=== PATIENT | male | born 1970 | race Caucasian/White ===

== ENCOUNTER 2017-08-06 12:48 | Day surgery (SDC) | payer BC ==
[~2017-08-06 12:48] MED LIST: ACETAMINOPHEN 1,000 MG/100 ML BTL IV ONE; CEFAZOLIN 2 Gram 2 GM/50 ML BAG IVPB ONE
[2017-08-06] MEDS ORDERED: MIDAZOLAM HCL 2MG/2ML VIAL IV ONE (12:49)
[2017-08-06] MEDS ORDERED: PROPOFOL 10 MG/ML VIAL IV ONE (12:49)
[2017-08-06] MEDS ORDERED: KETOROLAC 60 MG/2 ML VIAL IM ONE (12:49)
[2017-08-06] MEDS ORDERED: MORPHINE SULFATE 5 MG/ML PFS IVP ONE (12:49)
[2017-08-06] MEDS ORDERED: BUPIVACAINE 0.5% W/EPI MPF 30 ML VIAL IVP ONE (12:49)
[2017-08-06] MEDS ORDERED: SEVOFLURANE 250 ML INH ONE (12:49)
--- NOTE | 2017-08-07 20:56 | Operative Note ---
DATE: 08/06/17 PREOPERATIVE DIAGNOSIS: INTERNAL DERANGEMENT OF THE LEFT KNEE. POSTOPERATIVE DIAGNOSES: COMPLETE TEAR OF THE ANTERIOR CRUCIATE LIGAMENT WITH UNSTABLE KNEE. PROCEDURE: 1. LEFT KNEE ARTHROSCOPY WITH INTRAARTICULAR DEBRIDEMENT. 2. LEFT KNEE EXAMINATION UNDER ANESTHESIA. STAFF SURGEON: CIRILO PUENTE M.D. ANESTHESIA: GENERAL. PREPARATION: NONE. INDIVIDUAL CONSIDERATIONS: NONE. PROCEDURE: The patient was taken to the Operating Room and placed supine on the operating table. He had a successful induction of a general anesthetic. Examination under anesthesia at this point was essentially normal except for the huge effusion. The knee was then prepped and draped in the usual fashion. The patient had superolateral inflow cannula placed. The skin was infiltrated with 0.5% Marcaine with Epinephrine prior. A large bloody effusion was drained. The knee was inflated with normal saline. An inferior medial and an inferior lateral portal were made in a similar fashion. The arthroscope was introduced through the inferior lateral portal up into the pouch. The patellofemoral compartment was basically normal. Medial compartment structures were well seen and found to be normal in the notch. The cruciate looked normal but when I probed it basically it ripped completely off the femur and was largely unstable and impinging in the lateral compartment. This was debrided back with a shaver. PCL was intact. Lateral compartment structures were normal. After irrigation, I went ahead and release the leg peters to exam the knee and now he had increasing excursion Claudia's and probably between a 1 and 2+ pivot shift. After irrigation, the portals were closed with adrienne and 20 mL of 0.5% Marcaine with Epinephrine along with 4 mg of Morphine and 40 mg DepoMedrol were injected into the knee and a sterile Bulkee compressive dressing was applied. The patient tolerated the procedure well. Needle and sponge counts were correct. Estimated blood loss was minimal. He was taken back to Recovery in good condition. There were no complications. JOB NUMBER: [id number] [facility]
== END 2017-08-06 16:50 | disposition home or self-care (01) ==
LOC: SUR 12:48
PROVIDERS: ATTEND Orthopaedic Surgery
DX: S83.512A Sprain of anterior cruciate ligament of left knee, initial encounter (principal)
CPT/HCPCS: 29880; 01400; J0690; J2270; J1885